=== PATIENT | female | born 1995 | race Caucasian/White ===

== ENCOUNTER 2016-11-07 19:41 | Emergency (ER) | payer OTHER ==
[~2016-11-07] VITALS: Ht 160 cm; Wt 95.5 kg
[~2016-11-07 19:41] MED LIST: NO HOME MEDICATIONS
[2016-11-07 20:01] VITALS: BP 154/93; PULSE 102; TEMP 98.4
== END 2016-11-07 21:03 | disposition home or self-care (01) ==
LOC: COL.ER 19:41
DX: S80.02XA Contusion of left knee, initial encounter (principal); S10.81XA Abrasion of other specified part of neck, initial encounter; V43.52XA Car driver injured in collision with other type car in traffic accident, initial encounter; Y92.410 Unspecified street and highway as the place of occurrence of the external cause